=== PATIENT | female | born 1955 | race Caucasian/White ===

== ENCOUNTER 2019-10-05 11:55 | Emergency (ER) | payer MEDICARE, OTHER ==
--- NOTE | 2019-10-05 12:04 | EDM.PDOC ---
ED HPI GENERAL MEDICAL PROBLEM - General Stated Complaint: BLOOD SUGAR HIGH Time Seen by Provider: 10/05/19 12:03 Source of Information: Reports: Patient, RN, RN Notes Reviewed History Limitations: Reports: No Limitations - History of Present Illness INITIAL COMMENTS - FREE TEXT/NARRATIVE: Pt was instructed by a nurse from another facility to come to the ER because her blood sugar was >500 this morning at a routine lab draw. Pt reports Hx of DM Type 2 insulin dependent. She recently moved from [place], [place] to [place] and states that she stopped all her diabetic medications about 2 or 3 weeks ago because she could not afford them. She has not been checking her blood glc. at home recently. She denies any significant symptoms or any concerns of a medical emergency. She admits to some dry mouth and increased thirst and urinary frequency. She has not established care in [place] yet. Her [place] doctor recommended she establish with Dr. Jeremiah Vega at [facility]. Onset: Unknown/Unsure Location: Reports: Generalized Quality: Reports: Other (Denies pain) Severity: Severe Improves with: Reports: None Worsens with: Reports: None Associated Symptoms: Reports: No Other Symptoms - Related Data Allergies Allergy/AdvReac Type Severity Reaction Status Date / Time No Known Allergies Allergy Verified 10/05/19 12:12 Home Meds: Home Meds Insulin Glarg,Human.Rec.Analog [Lantus] 55 units SUBCUT QPM 10/05/19 [History] Past Medical History Endocrine/Metabolic History: Reports: Diabetes, Type II Social & Family History - Family History Family Medical History: Noncontributory - Living Situation & Occupation Living situation: Reports: with Family ED ROS GENERAL - Review of Systems Review Of Systems: ROS reveals no pertinent complaints other than HPI. ED EXAM GENERAL NO PERIP PULSE - Physical Exam Exam: See Below Exam Limited By: No Limitations General Appearance: Alert, WD/WN, No Apparent Distress Eye Exam: Bilateral Eye: Normal Inspection Head: Atraumatic, Normocephalic Respiratory/Chest: No Respiratory Distress, Lungs Clear, Normal Breath Sounds, No Accessory Muscle Use, Chest Non-Tender Cardiovascular: Regular Rate, Rhythm, No Edema Neurological: Alert, Oriented, No Motor/Sensory Deficits Psychiatric: Normal Mood Skin Exam: Warm, Dry, Intact, Normal Color Course - Vital Signs Last Recorded V/S: Last Vital Signs Temp 96.7 F 10/05/19 12:14 Pulse 94 10/05/19 12:14 Resp 14 10/05/19 12:14 BP 141/79 H 10/05/19 12:14 Pulse Ox 100 10/05/19 12:14 - Orders/Labs/Meds Orders: Active Orders 24 hr Category Date Time Status Blood Glucose Check, Bedside [RC] ONETIME Care 10/05/19 12:08 Active Labs: Laboratory Tests 10/05/19 Range/Units 12:09 POC Glucose 464 H* (70-105) mg/dl Meds: Medications Discontinued Medications Generic Name Dose Route Start Last Admin Trade Name Parvin PRN Reason Stop Dose Admin Insulin Human Regular 10 unit 10/05/19 12:17 10/05/19 12:25 Humulin R SUBCUT 10/05/19 12:18 10 units ONETIME ONE Administration - Re-Assessments/Exams Free Text/Narrative Re-Assessment/Exam: 10/05/19 12:11 The pt is found to have a blood glucose of 464 here in the ER. She has an established dx of DM Type 2, and has voluntarily stopped her diabetic treatments on her own in the past 2-3 weeks due to the financial burden. She has stable VS and no s/s concerning for a medical emergency. I plan to cover her with Regular Insulin 10 units SC x1 dose now and with coordinate a same day clinic appointment for her to establish care and for medication management. No further diagnostic w/u is indicated in the ER setting. I contacted Dr. Vega, who agrees to have some one see the pt in clinic today. Departure - Departure Time of Disposition: 12:30 Disposition: Home, Self-Care 01 Condition: Good Clinical Impression: Hyperglycemia due to type 2 diabetes mellitus Qualifiers: Diabetes mellitus prison insulin use: with prison use Qualified Code(s): E11.65 - Type 2 diabetes mellitus with hyperglycemia - Discharge Information *PRESCRIPTION DRUG MONITORING PROGRAM REVIEWED*: No *COPY OF PRESCRIPTION DRUG MONITORING REPORT IN PATIENT PEREZ: No Instructions: Hyperglycemia, [id number] Forms: ED Department Discharge Additional Instructions: Go directly from the ER to [facility] where Dr. Vega has agreed that she or one of her associates will assist you to establish care and provide medication management for your diabetes. - My Orders Last 24 Hours: My Active Orders 10/05/19 12:08 Blood Glucose Check, Bedside [RC] ONETIME - Assessment/Plan Last 24 Hours: My Active Orders 10/05/19 12:08 Blood Glucose Check, Bedside [RC] ONETIME
[2019-10-05] MEDS: Insulin Regular, Human 100 Units/ML 3 ML Vial SUBCUT ONE (12:25)
== END 2019-10-05 12:40 | disposition home or self-care (01) ==
LOC: DL.ED 11:55
DX: E11.65 Type 2 diabetes mellitus with hyperglycemia (principal); Z79.4 Long term (current) use of insulin
CPT/HCPCS: 82962; 99283; J1815

== ENCOUNTER 2022-07-01 17:51 | Emergency (ER) | payer MEDICARE, OTHER ==
[2022-07-01] MEDS ORDERED: Sodium Chloride 0.9% 10 ML Syringe FLUSH PRN (19:35)
[2022-07-01] MEDS ORDERED: Ondansetron 4 MG/2 ML SDV IVPUSH ONE (19:40)
[2022-07-01] MEDS ORDERED: Famotidine 20 MG/2 ML SDV IVPUSH ONE (19:48)
[2022-07-01 20:30] LABS: ANION GAP 13.6 mEq/L (7-13); CHLORIDE,CL 103 mmol/L (98-107); SODIUM,NA 137 mmol/L (136-145)
[2022-07-01 20:33] LABS: ESTIMATED GFR 44 mL/min (>=60)
[2022-07-01] MEDS ORDERED: Sodium Chloride 0.9% 1,000 ML IV ONE (20:37)
[2022-07-01] MEDS ORDERED: Insulin Regular, Human 100 Units/ML 3 ML Vial IV ONE ×2 (20:37→20:48)
[2022-07-01] MEDS ORDERED: HYDROmorphone 1 MG/ML Syringe IVPUSH ONE (20:47)
[2022-07-01 21:05] LABS: AMPHETAMINES,URINE NEGATIVE (NEGATIVE); BARBITURATES,URINE NEGATIVE (NEGATIVE); BENZODIAZEPINE,URINE NEGATIVE (NEGATIVE); MDMA (ECSTASY), URINE NEGATIVE (NEGATIVE); METHADONE,URINE NEGATIVE (NEGATIVE); METHAMPHETAMINES,URINE NEGATIVE (NEGATIVE); OPIATES,URINE NEGATIVE (NEGATIVE); OXYCODONE,URINE NEGATIVE (NEGATIVE); PHENCYCLIDINE,URINE NEGATIVE (NEGATIVE); TCA,URINE POSITIVE (NEGATIVE)
[2022-07-01] MEDS ORDERED: Iopamidol 612 MG/ML 100 ML Bottle IVPUSH ONE (21:07)
[2022-07-01] MEDS ORDERED: Metoclopramide 10 MG/2 ML SDV IVPUSH ONE (21:23)
[2022-07-01] MEDS ORDERED: Benzocaine 20% Oral Spray 59.2 ML Canister MUCMEM ONE (23:39)
[2022-07-01] MEDS ORDERED: Benzocaine 20% Topical Spray UD ONE (23:46)
[2022-07-02] MEDS ORDERED: Lactated Ringers 1,000 ML IV ONE (00:14)
== END 2022-07-02 01:40 ==
LOC: DL.ED 17:51
DX: K56.609 Unspecified intestinal obstruction, unspecified as to partial versus complete obstruction (principal); K83.1 Obstruction of bile duct; K42.9 Umbilical hernia without obstruction or gangrene; R18.8 Other ascites; E11.9 Type 2 diabetes mellitus without complications; Z91.048 Other nonmedicinal substance allergy status; Z79.4 Long term (current) use of insulin; Z79.899 Other long term (current) drug therapy; Z20.822 Contact with and (suspected) exposure to COVID-19
CPT/HCPCS: 36415; 43752; 71045; 74177; 80053; 80305; 80307; 81003; 82009; 82140; 82150; 82947; 83605; 83690; 83735; 84145; 84443; 84484; 85025; 86140; 93005; 93010; 96361; 96374; 96375; 99284; 99285; A9270; J1170; J1815; J2405; J2765; J3490; J7030; Q9967; U0002

== ENCOUNTER → 2022-11-12 | Day surgery (SDC) | payer MEDICARE, OTHER ==
[~2022-11-12] MED LIST: Dextrose 5%-0.45% NaCl 1,000 ML IV SCH; Midazolam 1 MG/ML 2 ML SDV IV ONE; Midazolam 1 MG/ML 2 ML SDV ONE; fentaNYL 100 MCG/2 ML SDV IV ONE; fentaNYL 100 MCG/2 ML SDV ONE
== END | disposition home or self-care (01) ==
LOC: DL.ENDO 05:19
PROVIDERS: ATTEND Internal Medicine Gastroenterology
DX: K31.7 Polyp of stomach and duodenum (principal); K25.9 Gastric ulcer, unspecified as acute or chronic, without hemorrhage or perforation; K31.89 Other diseases of stomach and duodenum; E11.40 Type 2 diabetes mellitus with diabetic neuropathy, unspecified; E66.09 Other obesity due to excess calories; Z91.048 Other nonmedicinal substance allergy status; Z68.36 Body mass index [BMI] 36.0-36.9, adult
CPT/HCPCS: 87077; 88305; J2250; J3010; J7042

== ENCOUNTER 2022-11-19 06:46 | Day surgery (SDC) | payer MEDICARE, OTHER ==
[~2022-11-19 06:46] MED LIST changes: +Lactated Ringers 1,000 ML IV SCH; -Midazolam 1 MG/ML 2 ML SDV IV ONE; -Midazolam 1 MG/ML 2 ML SDV ONE; +Sodium Chloride 0.9% 10 ML Syringe FLUSH PRN; +Sodium Chloride 0.9% 10 ML Syringe FLUSH SCH; -fentaNYL 100 MCG/2 ML SDV IV ONE; -fentaNYL 100 MCG/2 ML SDV ONE
[2022-11-19] MEDS ORDERED: Lidocaine 1% 20 ML MDV ONE (06:47)
[2022-11-19] MEDS ORDERED: Propofol 200 MG/20 ML SDV IV ONE (06:47)
[2022-11-19] MEDS ORDERED: Sodium Chloride 0.9% 10 ML Syringe IV ONE (06:47)
[2022-11-19] MEDS ORDERED: Lactated Ringers 300 ML IV ONE (06:47)
[2022-11-19] MEDS ORDERED: Lidocaine 1% PF 2 ML SDV ONE (06:47)
== END 2022-11-19 09:08 | disposition home or self-care (01) ==
LOC: DL.ENDO 06:46
PROVIDERS: ATTEND Internal Medicine Gastroenterology
DX: D12.4 Benign neoplasm of descending colon (principal); K64.4 Residual hemorrhoidal skin tags; K62.1 Rectal polyp; E66.09 Other obesity due to excess calories; E11.42 Type 2 diabetes mellitus with diabetic polyneuropathy; I10 Essential (primary) hypertension; E78.5 Hyperlipidemia, unspecified; I25.10 Atherosclerotic heart disease of native coronary artery without angina pectoris; R79.89 Other specified abnormal findings of blood chemistry; Z68.36 Body mass index [BMI] 36.0-36.9, adult; Z91.048 Other nonmedicinal substance allergy status; Z79.899 Other long term (current) drug therapy
CPT/HCPCS: 00811; 82947; 88305; J2704; J3490; J7120